=== PATIENT | female | born 1965 | race Caucasian/White ===

== ENCOUNTER 2022-03-26 14:26 | Emergency (ER) | payer SELFPAY ==
[2022-03-26 14:34] VITALS: BP 153/82; PULSE 92; RESP 16; TEMP 36.1; O2SAT 99
--- NOTE | 2022-03-26 14:38 | ED.DENTAL ---
HPI - Dental/Oral General Chief complaint: Dental/Oral Stated complaint: tooth pain Time Seen by Provider: 03/26/22 14:37 Source: patient Mode of arrival: ambulatory Limitations: no limitations History of Present Illness HPI Narrative: Ms. Cohen is a 56-year-old female patient presenting to the clinic today with complaints of dental pain x2 days. She reports she is having pain to the top of her right to back molars and her right lower bottom molar. Reports that she has had problems with this in the past and has dealt with it however she has not been seen a dentist. She has plans to make a dentist appointment on Monday. Had taken hydrocodone last night to help her pain and this had made her sick. Related Data Home Medications Medication Instructions Recorded Confirmed albuterol sulfate 90 mcg/actuation 1 inh inhalation Q6-8H PRN Wheezing 03/26/22 03/26/22 aerosol inhaler atorvastatin 40 mg tablet 40 mg PO DAILY 03/26/22 03/26/22 fluoxetine 10 mg capsule 10 mg PO DAILY 03/26/22 03/26/22 metformin 500 mg tablet 500 mg PO DAILY 03/26/22 03/26/22 omeprazole 40 mg capsule,delayed 40 mg PO DAILY 03/26/22 03/26/22 release Allergies Allergy/AdvReac Type Severity Reaction Status Date / Time No Known Allergies Allergy Verified 03/26/22 14:39 Review of Systems Review of Systems: Pertinent positives per HPI. Patient denies any fever, chills, rash, headache, visual changes, dizziness, cough, runny nose, sore throat, shortness of breath, chest pain, palpitations, nausea, vomiting, diarrhea, constipation, abdominal pain, or any urinary issues. PMFSH Comments At the time of my signature, I reviewed and agree with the nursing past medical, surgical, social, and family history. There is no relevant family history pertinent to the patient complaint. Exam Narrative: General: Well-developed, well nourished, in no apparent distress Head: Normocephalic, atraumatic Eyes: Pupils equally round and reactive to light bilaterally, EOM intact, sclera and conjunctive clear, no discharge, lids normal Ears: TMs intact and clear, ear canals clear, no drainage, grossly hearing normal. Nose: Nares patent, no discharge, no inflammation, no sinus tenderness. Mouth: Oropharynx without lesions or masses, poor dentition, right posterior upper molars and right bottom back molar inflamed and decayed, no obvious abscess, MMM. Neck: Supple, trachea midline, no enlargement of anterior or posterior cervical nodes, no thyroid masses or goiter palpable. Cardio: Regular rate and rhythm, s1 and s2 normal, no murmur appreciated. Resp: Clear to auscultation bilaterally anteriorly and posteriorly, no rhonchi, rales, wheezing or rubs Course Course Emergency Course: Portions of this record may have been created with voice recognition software. Level of Care: Express Care Visit Vital Signs Vital signs: Vital Signs Temperature 36.1 C L 03/26/22 14:34 Pulse Rate 92 03/26/22 14:34 Respiratory Rate 16 03/26/22 14:34 Blood Pressure 153/82 H 03/26/22 14:34 Pulse Oximetry 99 03/26/22 14:34 Oxygen Delivery Room Air 03/26/22 14:34 Temperature 36.1 C L 03/26/22 14:34 Pulse Rate 92 03/26/22 14:34 Respiratory Rate 16 03/26/22 14:34 Blood Pressure 153/82 H 03/26/22 14:34 Pulse Oximetry 99 03/26/22 14:34 Oxygen Delivery Room Air 03/26/22 14:34 Vital signs reviewed MDM - Dental/Oral MDM Narrative Medical decision making narrative: At the time of assessment patient is resting comfortably on the exam table. She reports she is having right-sided dental pain to the upper and lower back jaw. I suspect that the patient has a dental infection. Amoxicillin and ibuprofen was prescribed for the patient she voiced understanding of discharge instruction agrees to treatment plan. Discharge Plan Discharge Clinical Impression: Toothache Patient Disposition: Home, Self-Care Condition: Stable Instructions: Antibiotic F
== END 2022-03-26 14:48 | disposition home or self-care (01) ==
PROVIDERS: Emergency Provider Nurse Practitioner Family; PCP Family Medicine
DX: K08.89 Other specified disorders of teeth and supporting structures (principal); E78.00 Pure hypercholesterolemia, unspecified; E11.9 Type 2 diabetes mellitus without complications
CPT/HCPCS: 99213; G0463